=== PATIENT | female | born 1990 | race Caucasian/White ===

== ENCOUNTER 2019-10-05 16:32 | Emergency (ER) | payer OTHER ==
[~2019-10-05] VITALS: Ht 154.9 cm; Wt 101.2 kg
[2019-10-05 16:59] VITALS: Ht 154.9 cm; Wt 101.2 kg
[2019-10-05 17:46] LABS: BASOPHIL % 0.2 % (0-2); RED CELL DISTRIBUTION WIDTH 13.9 % (11.5-14.5)
[2019-10-05 17:50] LABS: PLATELET COUNT 461 x10^3mcL (130-400)
[2019-10-05 19:01] VITALS: BP 132/75
== END 2019-10-05 19:02 | disposition home or self-care (01) ==
LOC: ED 16:32
PROVIDERS: Emergency Medicine
DX: O03.9 Complete or unspecified spontaneous abortion without complication (principal); R51 Headache; R42 Dizziness and giddiness; Z3A.08 8 weeks gestation of pregnancy
CPT/HCPCS: 36415; Q0092